=== PATIENT | female | born 1930 | race Caucasian/White ===

== ENCOUNTER 2020-11-27 13:00 | Emergency (ER) | payer MEDICARE ==
[~2020-11-27] VITALS: Ht 162.6 cm; Wt 57.0 kg
--- NOTE | 2020-11-27 13:50 | NUR ---
sitter at bedside with pt
--- NOTE | 2020-11-27 14:01 | NUR ---
speaking with Laura on the phone about the pt's situation. [phone]. pt has a 1-2 min memory loop.
[2020-11-27 14:40] LABS: COLOR,URINE YELLOW (Yellow); GLUCOSE, URINE 100 mg/dl (Neg); KETONES,URINE NEGATIVE (Neg); LEUKOCYTE ESTERASE ,URINE SMALL (Neg); NITRITES, URINE NEGATIVE (Neg); OCCULT BLOOD,URINE SMALL (Neg); PROTEIN,URINE NEGATIVE (Neg); UROBILINOGEN,URINE 0.2 E.U/dL (0.2-1.0)
[2020-11-27 14:54] LABS: CLARITY,URINE SLIGHTLY CLOUDY (Clear); UA COLLECTION TYPE CLN CATCH MIDSTREAM
[2020-11-27 15:03] LABS: WBC,URINE 0-4 /HPF (0-4)
[2020-11-27 15:04] VITALS: BP 127/93
[2020-11-27 15:04] LABS: BACTERIA,URINE FEW /HPF (Neg); MUCUS STRANDS NONE SEEN /LPF (Neg); SQUAMOUS EPITHELIAL CELL,UR FEW /LPF (FEW)
--- NOTE | 2020-11-27 15:04 | NUR ---
Isabel HALE at [facility] states that the pt was hard to arouse this morning and also her BP was 189/120s. this is not her normal baseline and so they called the EMS to send her here. pt's BP is now normal and no obvious neuro deficit other than memory issues. pt is breathing well and walking in unit. she is anxious in this setting and does not want to be here. 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
[2020-11-27] MEDS ORDERED: HALDOL TOP (15:13)
[2020-11-27] MEDS ORDERED: LEVO50TA PO (15:13)
[2020-11-27] MEDS ORDERED: SERT-434 PO (15:13)
[2020-11-27] MEDS ORDERED: MELA5TAB12 PO (15:13)
[2020-11-27] MEDS ORDERED: LOSA1TAB36 PO (15:13)
[2020-11-27] MEDS ORDERED: QUET25TA34 PO (15:13)
[2020-11-27] MEDS ORDERED: CHOL10006 PO (15:16)
== END 2020-11-27 15:49 | disposition home or self-care (01) ==
LOC: ER 13:01
DX: F03.90 Unspecified dementia, unspecified severity, without behavioral disturbance, psychotic disturbance, mood disturbance, and anxiety (principal); I10 Essential (primary) hypertension; R45.1 Restlessness and agitation; Z79.899 Other long term (current) drug therapy
CPT/HCPCS: 81001; 99284

== ENCOUNTER 2021-09-12 12:25 | Emergency (ER) | payer MEDICARE ==
[~2021-09-12] VITALS: Ht 162.6 cm; Wt 56.8 kg
[~2021-09-12 12:25] MED LIST: CHOL10006 PO; HALDOL TOP; LEVO50TA PO; LOSA1TAB36 PO; MELA5TAB12 PO; QUET25TA36 PO; SERT-434 PO
[2021-09-12 13:15] LABS: CLARITY,URINE CLEAR (Clear); GLUCOSE, URINE NEGATIVE (Neg); KETONES,URINE NEGATIVE (Neg); LEUKOCYTE ESTERASE ,URINE SMALL (Neg); NITRITES, URINE NEGATIVE (Neg); OCCULT BLOOD,URINE NEGATIVE (Neg); PROTEIN,URINE NEGATIVE (Neg); UROBILINOGEN,URINE 0.2 E.U/dL (0.2-1.0)
[2021-09-12 13:33] LABS: COLOR,URINE STRAW (Yellow); UA COLLECTION TYPE URINAL
[2021-09-12 13:34] LABS: MUCUS STRANDS FEW /LPF (Neg); SQUAMOUS EPITHELIAL CELL,UR FEW /LPF (FEW)
[2021-09-12 13:35] LABS: BACTERIA,URINE FEW /HPF (Neg); HYALINE CASTS 0-3 /LPF (NEGATIVE); RBC,URINE 0-2 /HPF (0-2); WBC,URINE 0-4 /HPF (0-4)
[2021-09-12 13:42] LABS: BASOPHILS # (AUTO) 0.1 X10'3 (0-0.2); BASOPHILS % (AUTO) 0.9 % (0-1); EOSINOPHILS # (AUTO) 0.4 X10'3 (0-0.9); EOSINOPHILS % (AUTO) 5.5 % (0-6); HEMATOCRIT 37.2 % (35.0-45.0); LYMPHOCYTES # (AUTO) 1.2 X10'3 (1.1-4.8); LYMPHOCYTES % (AUTO) 18.1 % (21-51); MEAN CORPUSCULAR HEMOGLOBIN 28.5 PG (27.0-31.0); MEAN CORPUSCULAR HGB CONC 32.2 g/dL (33.0-36.5); MEAN CORPUSCULAR VOLUME 88.4 FL (78-98); MEAN PLATELET VOLUME 8.3 FL (7.4-10.4); MONOCYTES # (AUTO) 0.7 X10'3 (0-0.9); MONOCYTES % (AUTO) 10.4 % (2-12); NEUTROPHILS # (AUTO) 4.3 X10'3 (1.8-7.7); NEUTROPHILS % (AUTO) 65.1 % (42-75); PLATELET COUNT 305 X10'3 (140-440); RED BLOOD COUNT 4.21 X10'6 (4.20-5.60); RED CELL DISTRIBUTION WIDTH 14.2 % (11.5-14.5); WHITE BLOOD COUNT 6.5 X10'3 (4.5-11.0)
[2021-09-12] MEDS ORDERED: diphenhydrAMINE 25mg capsule PO ONE ×2 (13:45→14:00)
--- NOTE | 2021-09-12 13:45 | NUR ---
Patient complaining of itchiness, mild excoriations noted to the abdomen. No obvious rash. RN and doctor made aware, Benadryl ordered.
[2021-09-12] MEDS ORDERED: normal saline 1000ML IV soln IVB ONE (14:00)
[2021-09-12 14:07] LABS: ALANINE AMINOTRANSFERASE 26 U/L (12-78); ALBUMIN 3.4 G/DL (3.4-5.0); ALBUMIN/GLOBULIN RATIO 0.9 (1.1-1.5); ALKALINE PHOSPHATASE 94 IU/L (46-116); ANION GAP 6 (8-16); ASPARTATE AMINO TRANSFERASE 20 U/L (10-37); BILIRUBIN,TOTAL 0.4 MG/DL (0.1-1.0); BLOOD UREA NITROGEN 22 MG/DL (7-18); BUN/CREATININE RATIO 22.4 (6.6-38.0); CALCIUM 8.9 MG/DL (8.5-10.1); CHLORIDE 107 MMOL/L (99-107); CREATININE 0.98 MG/DL (0.40-0.90); GLUCOSE 90 MG/DL (70-104); POTASSIUM 3.8 MMOL/L (3.5-5.1); SODIUM 144 MMOL/L (135-145); TOTAL CARBON DIOXIDE 31.1 MMOL/L (24-32); TOTAL PROTEIN 7.3 G/DL (6.4-8.2); eGFR 53 ML/MIN
[2021-09-12 14:10] LABS: MAGNESIUM 2.7 MG/DL (1.5-2.4)
[2021-09-12] MEDS ORDERED: cefTRIAXone 1g/NS 100ml IVPB 100 ML IV ONE (14:15)
[2021-09-12] MEDS ORDERED: CEPH-585 PO (14:30)
[2021-09-12 16:09] VITALS: BP 170/98
== END 2021-09-12 16:11 | disposition home or self-care (01) ==
LOC: ER 12:25
DX: R55 Syncope and collapse (principal); E86.0 Dehydration; R63.1 Polydipsia; N39.0 Urinary tract infection, site not specified; F03.90 Unspecified dementia, unspecified severity, without behavioral disturbance, psychotic disturbance, mood disturbance, and anxiety; I10 Essential (primary) hypertension; Z79.2 Long term (current) use of antibiotics; Z79.899 Other long term (current) drug therapy
CPT/HCPCS: 36415; 71045; 80053; 81001; 83735; 83880; 84484; 85025; 93005; 96361; 96365; 99285; J0696; J7030; Q0163

== ENCOUNTER 2021-09-27 16:10 | Emergency (ER) | payer MEDICARE ==
[~2021-09-27] VITALS: Ht 160 cm; Wt 56.0 kg
[~2021-09-27 16:10] MED LIST changes: +CEPH-585 PO
[2021-09-27 16:56] VITALS: BP 154/80
[2021-09-27 17:20] LABS: CLARITY,URINE CLEAR (Clear); COLOR,URINE YELLOW (Yellow); GLUCOSE, URINE NEGATIVE (Neg); KETONES,URINE NEGATIVE (Neg); LEUKOCYTE ESTERASE ,URINE NEGATIVE (Neg); NITRITES, URINE NEGATIVE (Neg); OCCULT BLOOD,URINE TRACE-INTACT (Neg); PROTEIN,URINE NEGATIVE (Neg); UROBILINOGEN,URINE 0.2 E.U/dL (0.2-1.0)
[2021-09-27 17:23] LABS: BACTERIA,URINE NONE SEEN /HPF (Neg); HYALINE CASTS 0-3 /LPF (NEGATIVE); MUCUS STRANDS FEW /LPF (Neg); SQUAMOUS EPITHELIAL CELL,UR NONE SEEN /LPF (FEW); UA COLLECTION TYPE STRAIGHT CATH; WBC,URINE 0-4 /HPF (0-4)
--- NOTE | 2021-09-27 17:28 | NUR ---
PT. GOING TO CT.
--- NOTE | 2021-09-27 18:27 | NUR ---
Pt to be transported home by [employer] per family member at the bedside. [employer] contacted and transportation arranged. 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
== END 2021-09-27 19:51 | disposition home or self-care (01) ==
LOC: ER 16:11
DX: S80.12XA Contusion of left lower leg, initial encounter (principal); I10 Essential (primary) hypertension; F41.9 Anxiety disorder, unspecified; Z79.2 Long term (current) use of antibiotics; Z79.899 Other long term (current) drug therapy; W18.30XA Fall on same level, unspecified, initial encounter; Y93.89 Activity, other specified; Y92.89 Other specified places as the place of occurrence of the external cause; Y99.8 Other external cause status; R51.9 Headache, unspecified; M54.2 Cervicalgia; S09.90XA Unspecified injury of head, initial encounter
CPT/HCPCS: 70450; 72125; 81001; 99284

== ENCOUNTER 2021-10-25 10:40 | Emergency (ER) | payer MEDICARE ==
[~2021-10-25] VITALS: Ht 170.2 cm; Wt 52.0 kg
[2021-10-25 12:27] LABS: BASOPHILS % (AUTO) 0.6 % (0-1); EOSINOPHILS # (AUTO) 0.2 X10'3 (0-0.9); EOSINOPHILS % (AUTO) 3.2 % (0-6); HEMATOCRIT 36.5 % (35.0-45.0); HEMOGLOBIN 11.9 g/dl (12.0-16.0); LYMPHOCYTES # (AUTO) 0.7 X10'3 (1.1-4.8); LYMPHOCYTES % (AUTO) 10.4 % (21-51); MEAN CORPUSCULAR HEMOGLOBIN 28.3 PG (27.0-31.0); MEAN CORPUSCULAR HGB CONC 32.6 g/dL (33.0-36.5); MEAN CORPUSCULAR VOLUME 86.9 FL (78-98); MEAN PLATELET VOLUME 7.9 FL (7.4-10.4); MONOCYTES # (AUTO) 0.6 X10'3 (0-0.9); MONOCYTES % (AUTO) 8.7 % (2-12); NEUTROPHILS # (AUTO) 5.4 X10'3 (1.8-7.7); NEUTROPHILS % (AUTO) 77.1 % (42-75); PLATELET COUNT 276 X10'3 (140-440); RED CELL DISTRIBUTION WIDTH 14.7 % (11.5-14.5)
[2021-10-25 12:37] LABS: ALANINE AMINOTRANSFERASE 25 U/L (12-78); ALBUMIN 3.4 G/DL (3.4-5.0); ALBUMIN/GLOBULIN RATIO 0.9 (1.1-1.5); ALKALINE PHOSPHATASE 82 IU/L (46-116); ANION GAP 7 (8-16); ASPARTATE AMINO TRANSFERASE 18 U/L (10-37); BILIRUBIN,TOTAL 0.5 MG/DL (0.1-1.0); BLOOD UREA NITROGEN 23 MG/DL (7-18); BUN/CREATININE RATIO 22.5 (6.6-38.0); CHLORIDE 104 MMOL/L (99-107); CREATININE 1.02 MG/DL (0.40-0.90); GLUCOSE 110 MG/DL (70-104); POTASSIUM 3.4 MMOL/L (3.5-5.1); SODIUM 142 MMOL/L (135-145); TOTAL CARBON DIOXIDE 30.9 MMOL/L (24-32); eGFR 51 ML/MIN
[2021-10-25 12:45] LABS: MAGNESIUM 2.1 MG/DL (1.5-2.4)
[2021-10-25] MEDS ORDERED: POTASSIUM BICARB 20meq eff tab 20 MEQ TABLET.EFF PO ONE (12:55)
[2021-10-25 13:45] VITALS: BP 146/78
== END 2021-10-25 13:49 ==
LOC: ER 10:40
DX: F03.90 Unspecified dementia, unspecified severity, without behavioral disturbance, psychotic disturbance, mood disturbance, and anxiety (principal); E87.6 Hypokalemia; I10 Essential (primary) hypertension; Z79.2 Long term (current) use of antibiotics; Z79.899 Other long term (current) drug therapy
CPT/HCPCS: 36415; 71045; 80053; 83735; 83880; 84484; 85025; 93005; 99285